=== PATIENT | male | born 1970 | race Caucasian/White ===

== ENCOUNTER 2016-09-26 18:23 | Inpatient (IN) | payer BC ==
[~2016-09-26] VITALS: Ht 177.8 cm; Wt 76.4 kg
--- NOTE | ~2016-09-26 | FD ---
ADMIT: 09/26/2016 RM/LOC: 427 [facility] MR#: [id number] [address] [address] LORRAINE HUDSON [address] [place] [address] Final Diagnosis SEX: M AGE: 46 : 1970 ADMISSION DATE: 09/26/2016 DISCHARGE DATE: 09/28/2016 FINAL DIAGNOSES: 1. Fever of unknown origin. 2. Malignant neoplasm of the pancreas. 3. Essential hypertension. 4. Diverticulosis. 5. Posttraumatic stress disorder. 6. Allergic rhinitis. 7. History of pulmonary embolism. Elena Mascorro MD/ modl JOB #: [id number] CC: Gino Hernández MD, Attending Physician Gino Hernández MD, Family Physician
--- NOTE | 2016-09-28 07:50 | HP ---
ADMIT: 09/26/2016 RM/LOC: 427 [facility] MR#: [id number] [address] [address] MAGDIEL HUDSON [address] [place] [address] History and Physical SEX: M AGE: 46 : 1970 DATE OF SERVICE: 09/27/2016 CHIEF COMPLAINT AND HISTORY OF PRESENT ILLNESS: Magdiel Hudson presented to the emergency room having not felt well for the day or two, but really poorly this evening, presented with some body aches and fever at home I believe to about 102 degrees. This is in the background of a patient who has just completed six cycles of chemotherapy for his localized pancreatic cancer, and for which he is hoping to have a Whipple procedure sometime in the near future. In the emergency room, septic evaluation was done, the source of infection was not identified. He had a white count of 12.7, lactic acid of 2.5. Blood cultures were collected. His chest x-ray was negative. His Procalcitonin was in an indeterminate range. His UA was not infected. He does not have any localizing symptoms which would support any real source of infection. It was felt he should be admitted however due to concerns he could have early sepsis. He was given a fluid bolus in the emergency room and started on IV vancomycin and Zosyn after I talked with medical staff there. PAST MEDICAL HISTORY: He was diagnosed with adenocarcinoma of the pancreas in May of 2016 and has subsequently undergone six chemotherapy cycles with FOLFIRINOX chemotherapy regimen. He is also to have a 5-day course of high- dose radiation therapy and then hopefully Whipple procedure. He said he did not really have any major symptomatic problems during his chemotherapy regimen. Chronic problems on his medical list include: 1. Allergic rhinitis. 2. Hypertension (not on medication). 3. New pancreatic cancer. 4. Migraines. 5. Diverticulitis. 6. PTSD. 7. Remote pulmonary embolus, no recurrence. PAST SURGICAL HISTORY: Operations include: 1. Upper and lower scopes. 2. Laparoscopy. 3. Various orthopedic procedures. 4. Sinus surgeries. 5. Tonsillectomy. 6. Sigmoid colectomy. FAMILY HISTORY: His mom is concurrently being followed for pancreatic cancer. HABITS: Does not use alcohol, although has in the past. He is now former smoker. 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 He is . ALLERGIES: SULFA DRUGS ARE LISTED. ADMIT: 09/26/2016 RM/LOC: 427 [facility] MR#: [id number] [address] [address] MAGDIEL HUDSON [address] [place] [address] History and Physical SEX: M AGE: 46 : 1970 MEDICATIONS: 1. Chemotherapy regimen as described. 2. Lexapro 20 mg daily. 3. Claritin 10 mg daily. 4. Oxycodone 5 mg as needed for pain management. 5. Trazodone 100 mg at bedtime. 6. Ativan 0.5 mg at bedtime. 7. Omeprazole 40 mg daily. 8. Had recently been on Xarelto 10 mg daily. REVIEW OF SYSTEMS: CONSTITUTIONAL: Fever as above. General malaise as above. ENT: No acute complaints. EYES: Nothing acute. RESPIRATORY: Minimal cough. No dyspnea. CV: No chest pain. GI: No nausea, vomiting, diarrhea, or stool changes. : No urinary complaints. SKIN: No rashes or bumps or blisters. NEUROPSYCH: This has all been stable. HEMATOLOGIC: No history of bleeding. Remote history of one episode of pulmonary embolus. Xarelto is on hold for potential stent procedure to be done ahead of radiation therapy, I believe this is for the common bile duct, that is actually scheduled for today. PHYSICAL EXAMINATION: GENERAL: This is an actually very well-appearing 46- year-old male, currently in no acute distress. Examined at the bedside early this morning. VITAL SIGNS: He was afebrile at that time. Other vital signs; pulse 84, respirations 16, BP 119/70, O2 saturation 95% on room air. ENT: Oral mucous membranes are clear. No nasal discharge. EYES: Normal in appearance. Pupils equal. Sclerae are clear. NECK: Supple. No tenderness with motion. No anterior-posterior cervical masses. No thyroid enlargement. CHEST: Unremarkable to inspection. LUNGS: Clear throughout. Normal respiratory effort. HEART: Regular rhythm without murmur or extra sound. ABDOMEN: Flat. Nontender to palpation of the upper and lower abdomen. Normal bowel sounds. No guarding. No rebound. No organomegaly. GENITALIA: Unremarkable to cursory exam. RECTAL: Lymph nodes are not felt in his axilla or groin. EXTREMITIES: Upper extremities are grossly normal, no rashes. Lower extremities are also grossly normal, no rashes. Normal pulses in his feet. No sores on his feet. BACK: Nontender to exam. ADMIT: 09/26/2016 RM/LOC: 427 [facility] MR#: [id number] [address] [place] [id number] MAGDIEL HUDSON [address] [place] [address] History and Physical SEX: M AGE: 46 : 1970 PSYCH: He is alert and calm. NEURO: No obvious focal neurologic signs. IMPRESSION: 1. Acute febrile illness of unknown origin in the patient who is about 2 weeks out from his last round of chemotherapy for a localized pancreatic carcinoma. 2. Adenocarcinoma of the pancreas. PLAN: We will continue broad-spectrum antibiotic coverage pending further cultures. Dr. Bruner, his oncologist, has also been asked to review the case. Sukhjinder Mantilla MD/ sridhar JOB #: [id number] CC: Gino Hernández, Attending Physician Gino Hernández, Family Physician
[2016-09-29] MEDS ORDERED: OXY IR DPS5 MG PO (13:36)
[2016-09-29] MEDS ORDERED: CLARITIN DPS10 MG PO (13:36)
[2016-09-29] MEDS ORDERED: LEXAPRO DPS20 MG PO (13:36)
[2016-09-29] MEDS ORDERED: DESYREL DPS100 MG PO (13:36)
[2016-09-29] MEDS ORDERED: OMEPRAZOLE40 MG PO (13:37)
[2016-09-29] MEDS ORDERED: ATIVAN-DPS0.5 MG PO (13:37)
[2016-09-29] MEDS ORDERED: BENADRYL-DPS25 MG PO (13:37)
[2016-09-29] MEDS ORDERED: MELATONIN1 MG PO (13:38)
[2016-09-29] MEDS ORDERED: XARELTO10 MG PO (13:38)
[2016-09-29] MEDS ORDERED: TYLENOL DPS325 MG PO (13:38)
[2016-09-29] MEDS ORDERED: AMOX TR-K CLV1 EAC4 PO (13:39)
--- NOTE | 2016-10-03 18:11 | ER ---
ADMIT: 09/26/2016 RM/LOC: 427 [facility] MR#: [id number] [address] [address] LORRAINE HUDSON [address] [place] [address] Emergency Room Report SEX: M AGE: 46 : 1970 DATE: 09/26/2016 ADDENDUM: HISTORY OF PRESENT ILLNESS: This patient comes to the ER because he has had a fever over the last 2 hours. He is currently getting chemotherapy for pancreatic cancer. He has body aching. Denies any cough, vomiting, or dysuria. PHYSICAL EXAMINATION: GENERAL: He is alert. LUNGS: Clear. VITAL SIGNS: His O2 saturation is normal. EMERGENCY ROOM COURSE: Septic workup was done. He has a white count of 12.7, his hemoglobin was 10.5, lactic acid was 2.5. He was started on Zosyn and vancomycin. I spoke with Dr. Mantilla, and he will be admitted by him. DIAGNOSES: 1. Fever. 2. Chemotherapy for pancreatic cancer. ANGEL Vega / Cal Harp MD / sridhar JOB #: [id number] CC: Gino Hernández MD, Attending Physician Gino Hernández MD, Family Physician
--- NOTE | 2016-10-18 08:15 | CO ---
ADMIT: 09/26/2016 RM/LOC: 427 [facility] MR#: [id number] [address] [address] LORRAINE HUDSON [address] [place] [address] Consultation SEX: M AGE: 46 : 1970 DATE OF CONSULTATION: 09/27/2016 ATTENDING PHYSICIAN: Gino Hernández MD CONSULTING PHYSICIAN: Kevin Bruner MD REASON FOR CONSULTATION: Pancreatic cancer, fever syndrome. HISTORY OF PRESENT ILLNESS: The patient is a 46-year-old male, who I follow up closely in the clinic for his borderline resectable pancreatic cancer. We have been treating him with FOLFIRINOX with 5-FU, irinotecan, and oxaliplatin. He recently has received six cycles thus far with fairly good tolerance. We just obtained restaging scans that showed his tumor to have apparently shrunk quite dramatically. He was now scheduled to be seen by Radiation/Oncology tomorrow in [place] for an abbreviated high-dose five-day course of radiation that we would give with concurrent Xeloda chemotherapy with the hope would then be that he can be resected thereafter. He presented last night with fever and chills, and was admitted through the emergency room. He has been placed on broad-spectrum antibiotic coverage. The source of his fever has not been clearly identified. He is feeling much better today with improvement in his temperatures. His white count is 12.7, hemoglobin is 10.9, platelets are 179. Thus far, his blood cultures and urine culture are negative. His chest x-ray showed no obvious pneumonia. His lactic acid was elevated at 2.5, bilirubin is normal at 0.3, procalcitonin was also normal. He was scheduled today to have his biliary stent changed, which he is a bit even overdo for changing in [place]. He is obviously going to miss that appointment. Otherwise, has no significant complaints. PAST MEDICAL HISTORY: Hypertension, pancreatic cancer, migraine headaches, remote history of pulmonary embolism, history of diverticulitis, history of alcohol abuse. ALLERGIES: REVIEWED IN THE CHART. MEDICATIONS: Reviewed in the chart. SOCIAL HISTORY: The patient is . He has four children. He has history of tobacco and alcohol abuse, but he is currently sober. FAMILY HISTORY: He is unaware of any recurrent pancreatic cancers or other malignancies in the family. REVIEW OF SYSTEMS: See HPI. Otherwise, complete review of systems was obtained and is negative. PHYSICAL EXAMINATION: VITAL SIGNS: Temperature 96, pulse 86, respirations 16, blood pressure 128/75. GENERAL: He is in no acute distress and provides a good history. He is alert and oriented. ADMIT: 09/26/2016 RM/LOC: 427 [facility] MR#: [id number] [address] [address] LORRAINE HUDSON [address] [place] [address] Consultation SEX: M AGE: 46 : 1970 HEENT: Mucous membranes are moist. No oral lesions are seen. Extraocular muscles were intact. Pupils are reactive and symmetrical. NECK: Without adenopathy or JVD. HEART: Regular rate and rhythm without murmur. LUNGS: Clear to auscultation bilaterally without any crackles or wheezes. ABDOMEN: Soft, nontender, and nondistended with positive bowel sounds throughout. No organomegaly is appreciated. EXTREMITIES: No edema, rashes, lesions or adenopathy is felt. LABORATORY DATA: Please see HPI. IMPRESSION: 1. Febrile illness of unknown cause, improved his antibiotic coverage. Certainly of concern, this is indwelling biliary stent, but he has no other findings to suggest a cholangitis. 2. Pancreatic cancer. Currently, undergoing treatment. RECOMMENDATIONS: I talked to the patient at length and reviewed his chart extensively. He has been feeling better since being admitted with antibiotic coverage. I think it is important that we try to keep his appointment for his radiation tomorrow, so hopefully, he can be discharged in the next 24 hours if he remains afebrile. His blood counts were adequate to help fight his own infection. I will have close followup with him in clinic as well upon discharge for his ongoing cancer care. I also would like him to get his biliary stent exchanged in the near future, which we will help to arrange as well. I will follow him during this admission, and appreciate being involved in his care. Kevin Bruner MD/ sridhar JOB #: [id number] CC: Gino Hernández MD, Attending Physician Gino Hernández MD, Family Physician
[2017-01-25] MEDS ORDERED: PROTONIX40 MG PO (19:03)
[2017-01-25] MEDS ORDERED: DURAGESIC1 EAC1 TD (19:03)
[2017-01-25] MEDS ORDERED: COMPAZINE10 MG PO (19:04)
[2017-01-25] MEDS ORDERED: CALCIUM + VITA1 EACH PO (19:04)
[2017-01-25] MEDS ORDERED: IMITREX DP6 MG/0.5 M SQ (19:05)
[2017-01-25] MEDS ORDERED: ZOMIG5 MG PO (19:05)
[2017-01-25] MEDS ORDERED: COLACE-DPS100 MG PO (19:05)
[2017-01-25] MEDS ORDERED: MUCINEX D PO (19:06)
[2017-01-25] MEDS ORDERED: CARAFATE DPS1 GM PO (19:06)
[2017-01-25] MEDS ORDERED: MARINOL2.5 MG PO (19:06)
[2017-01-25] MEDS ORDERED: ZYRTEC DPS10 MG PO (19:06)
[2017-01-25] MEDS ORDERED: SENOKOT-S TABL1 EACH PO (19:07)
[2017-01-25] MEDS ORDERED: REGLAN-DPS10 MG PO (19:07)
[2017-01-25] MEDS ORDERED: MAALOX DPS30 ML PO (19:07)
[2017-01-25] MEDS ORDERED: POLYETHYLENE GL17 GM PO (19:07)
[2017-01-25] MEDS ORDERED: ZOFRAN DPS8 MG PO (19:08)
== END 2016-09-28 10:30 | disposition home or self-care (01) | DRG 864 ==
LOC: ER 18:23 → 4PCU 20:20
PROVIDERS: ADMIT Family Medicine
DX: R50.9 Fever, unspecified (principal); C25.9 Malignant neoplasm of pancreas, unspecified; I10 Essential (primary) hypertension; K57.90 Diverticulosis of intestine, part unspecified, without perforation or abscess without bleeding; F43.10 Post-traumatic stress disorder, unspecified; J30.9 Allergic rhinitis, unspecified; Z86.711 Personal history of pulmonary embolism; Z87.891 Personal history of nicotine dependence

== ENCOUNTER 2017-01-19 19:52 | Inpatient (IN) | payer BC ==
[~2017-01-19] VITALS: Ht 176.5 cm; Wt 72.2 kg
--- NOTE | ~2017-01-19 | CO ---
ADMIT: 01/19/2017 RM/LOC: 407 [facility] MR#: [id number] [address] [address] MAGDIEL HUDSON [address] [place] [address] Consultation Report SEX: M AGE: 46 : 1970 DATE OF CONSULTATION: 01/22/2017 ATTENDING PHYSICIAN: Gino Hernández CONSULTING PHYSICIAN: Nimesh Peguero MD ADDENDUM: Magdiel was seen in consultation following Julio Briceno for consideration of EGD. I have reviewed the chart, reviewed Julio Briceno's note and I am in agreement with his documentation. I discussed esophagogastroduodenoscopy with Magdiel and he has agreed to proceed. We will have further recommendations pending with findings and endoscopy, that will be performed by either Dr. Terry or Dr. Valentin as an add-on into the schedule tomorrow. Nimesh Peguero MD/ modl JOB #: [id number] CC: Gino Hernández, Attending Physician Gino Hernández, Family Physician
--- NOTE | ~2017-01-19 | OR ---
ADMIT: 01/19/2017 RM/LOC: 407 [facility] MR#: [id number] [address] [address] LORRAINE HUDSON Bishnu [address] [place] [id number] Operative/Delivery Room Report SEX: M AGE: 46 : 1970 SURGERY DATE: 01/23/2017 SURGEON: Gino Valentin MD PREOPERATIVE DIAGNOSES: 1. History of metastatic pancreatic cancer. 2. Nausea. 3. Vomiting. POSTOPERATIVE DIAGNOSES: 1. Significant distal gastritis and maybe even some mild narrowing of the pylorus. No obvious mass seen. 2. History of metastatic pancreatic cancer. 3. Nausea. 4. Vomiting. Final pathology pending on biopsies. PROCEDURE: EGD with biopsies of the distal esophagus. ANESTHESIA: MAC anesthesia. ESTIMATED BLOOD LOSS: Less than 5 mL. INDICATION FOR PROCEDURE: Please see H and P. DESCRIPTION OF PROCEDURE: After the risks, benefits, possible complications, and the alternatives had been explained, and informed consent had been obtained, the patient was taken back to the procedure room, underwent sedation. Flexible EGD scope was introduced. Down through the esophagus, and you can see there was definitely some reflux esophagitis there in the distal esophagus. Maneuvered through here. Fair amount of bile in the stomach was cleaned out. The majority of the stomach looked normal until you get toward the antrum and pyloric area. There was definitely some fairly significant gastritis, maybe some mild narrowing, it appears extrinsic. No actual ulcer ADMIT: 01/19/2017 RM/LOC: 407 [facility] MR#: [id number] [address] [address] LORRAINE HUDSON [address] [place] [address] Operative/Delivery Room Report SEX: M AGE: 46 : 1970 around the pylorus. I was able to get my scope through there and it then appeared to be more open. I made it down the second portion. You can see where the stent in the ampulla is from his recent biliary stenting. So no other masses or lesions throughout that portion of the duodenum. Came back up and like I said, I made sure my scope went across the pylorus easily 3 or 4 times. I did not actually use a balloon dilator there but felt it was otherwise pretty normal at this point. I did do biopsies of the distal antrum, but definitely some bad gastritis. The scope was removed. I inspected the remainder of the stomach on the way out and the procedure was terminated. Tolerated it well, was taken to recovery room in stable and satisfactory condition. Gino Valentin MD/ sridhar JOB #: [id number] CC: Gino Hernández, Attending Physician Gino Hernández, Family Physician
[~2017-01-19 19:52] MED LIST: AMOX TR-K CLV1 EAC4 PO; ATIVAN-DPS0.5 MG PO; BENADRYL-DPS25 MG PO; CLARITIN DPS10 MG PO; DESYREL DPS100 MG PO; LEXAPRO DPS20 MG PO; MELATONIN1 MG PO; OMEPRAZOLE40 MG PO; OXY IR DPS5 MG PO; TYLENOL DPS325 MG PO; XARELTO10 MG PO
--- NOTE | 2017-01-20 01:59 | ER ---
ADMIT: 01/19/2017 RM/LOC: 407 [facility] MR#: [id number] [address] [address] LORRAINE HUDSON [address] [place] [address] Emergency Room Report SEX: M AGE: 46 : 1970 DATE: 01/19/2017 CHIEF COMPLAINT: Vomiting. HISTORY OF PRESENT ILLNESS: The patient is a 46-year-old male with stage IV pancreatic carcinoma status post biliary stent on January 16 followed by chemotherapy, had a good day yesterday hunting. Protracted nausea and vomiting today associated with increased bile duct discharge. Denies any fevers, chills, productive cough, or diarrhea. PAST MEDICAL HISTORY: ILLNESSES: Stage IV pancreatic carcinoma, migraine headaches, PTSD, seasonal allergic rhinitis, and recent pulmonary emboli. OPERATIONS: ERCP with biliary stent on January 16, cholecystectomy, partial colectomy for diverticulitis and abscess, T and A, left rotator cuff repair, right ACL reconstruction multiple times, multiple sinus surgeries, and venous access device, left anterior chest wall. ALLERGIES: SULFA. MEDICATIONS: Please see nurse's MAR. SOCIAL HISTORY: , nonsmoker, nondrinker. No illicit drugs. FAMILY HISTORY: Negative per chart review. REVIEW OF SYSTEMS: A 12-point review of systems negative for all other systems, illnesses, or operations except as outlined above. PHYSICAL EXAMINATION: VITAL SIGNS: Temp 97.4, pulse 70, respirations 16, BP 122/89, and SaO2 of 99% on room air. GENERAL: Toxic appearing without jaundice or icterus. HEENT: Normocephalic. No evidence of epistaxis, rhinorrhea, or otorrhea. NECK: Supple without lymphadenopathy or thyromegaly. CHEST: Breath sounds equal without rales, rhonchi, or wheeze. HEART: Regular rate and rhythm without murmur, gallop, or edema. ABDOMEN: Soft, tender, nondistended. Bowel sounds hypoactive. Discharge noted per bile duct bag. BACK: No CVA tenderness. EXTREMITIES: No evidence of Homans sign, synovitis, or dermatitis. NEURO: EOMI, PERRLA. No evidence of drift, dysarthria, or ataxia. Gait not assessed due to weakness. MEDICAL DECISION MAKING: The patient given liter of bolus, Zofran 8 mg IV push, Reglan 5 mg IV push, and fentanyl 50 mcg IV push q.15 minutes p.r.n. Chest x-ray negative. WBC 11.6 and hemoglobin 13.4. Normal chemistries except alkaline phosphatase 412. AST 108, ALT 132, lactic 3.5, normal bilirubin, and procalcitonin 0.13. UA pending. EKG showed sinus rhythm without ST-T or Q-wave change. Chest x-ray, no acute findings. Discussed ADMIT: 01/19/2017 RM/LOC: 407 [facility] MR#: [id number] [address] [place] [id number] LORRAINE HUDSON [address] [place] [address] Emergency Room Report SEX: M AGE: 46 : [address] Pak and Gita. Dr. Pelayo gave orders to nursing staff. DIAGNOSES: 1. Stage IV pancreatic carcinoma. 2. Recent biliary stent followed by chemotherapy. RECOMMENDATION: Admit inpatient telemetry for Dr. Hernández. ADMISSION AND DISCHARGE CONDITION: Grave. The patient is full code at this time. Demar Nunes MD/ sridhar JOB #: [id number] CC: Gino Hernández MD, Attending Physician Gino Hernández MD, Family Physician MD Kevin Simon MD
--- NOTE | 2017-01-23 08:39 | CO ---
ADMIT: 01/19/2017 RM/LOC: 407 [facility] MR#: [id number] [address] [address] LORRIANE HUDSON [address] [place] [address] Consultation SEX: M AGE: 46 : 1970 DATE OF CONSULTATION: 01/22/2017 ATTENDING PHYSICIAN: Gino Hernández CONSULTING PHYSICIAN: Fidelina Sahu APRN REASON FOR CONSULTATION: For review of goals and expectations of healthcare as well as symptom management. TIME IN: 0900 hours. TIME OUT: 0915 hours. HISTORY OF PRESENT ILLNESS: This is a very pleasant 46-year-old male with history of stage 4 pancreatic cancer with mets to the gallbladder status post gallbladder removal. He presented to the ER with a 24-hour history of nausea, vomiting, and abdominal pain. The patient states he was to attend his custodial green party, but was unable to go because of the symptoms. He has been undergoing multiple chemotherapy treatments and has had multiple biliary stents placed. Most recently, he had ERCP and a metal stent placed on 01/16/2017. His nausea and vomiting began on 01/18/2017. Following the stent placement and the ERCP, he was feeling well, but he does have a history of stents clogging, causing problems. He does state that he was feeling more weak and shaky starting on the 18 of January but denies any fevers. He was brought in by some friends who are also paramedics. They gave him some IV fluids and brought him into the ER. Also of note, the patient recently started on chemotherapy that he has not been on in a while. He also states that he has not had a bowel movement since 01/16/2017, which he requires regular Fleet Enemas to have bowel movements. Symptomatically, the patient is currently denying any shortness of breath, chest pain, or palpitations. He denies fevers or chills. He does complain of some abdominal pain. Also is currently having nausea and vomiting during conversation. He denies any diarrhea or blood in the stools. 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 Also of note, the abdominal CT shows ascites. Surgery has been consulted this morning for a possible EGD and also ordered is the NG to LIS if the patient wishes. Due to the complexity of this patient, Supportive Care consultation was requested for discussions of goals of care and expectations of health care. ADVANCE DIRECTIVE AND CODE STATUS: Currently, the patient is listed as a full code. He does have a living will and healthcare-power of criminal attorney paper work delineating that Shakeel Hudson is his healthcare power of criminal attorney. His phone #[phone]. PAST MEDICAL HISTORY: Significant for pancreatic cancer stage 5, hypertension, allergic rhinitis, migraines, diverticulitis, pulmonary embolism, and PTSD. ADMIT: 01/19/2017 RM/LOC: [address] [facility] MR#: [id number] [address] [place] [id number] LORRAINE HUDSON [address] [place] [address] Consultation SEX: M AGE: 46 : 1970 PAST SURGICAL HISTORY: Tonsillectomy, colectomy, gallbladder removal, multiple ortho procedures, sinus surgery. FAMILY HISTORY: Mother also had pancreatic cancer. He states that she was diagnosed 4 years ago and is currently living. SOCIAL HISTORY: The patient is living alone at home alone. He is . 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 He is a former smoker. He denies alcohol or drug use. ALLERGIES: SULFA. MEDICATIONS: Please refer to the chart for accurate dosages and routes. Current medications include: 1. Duragesic 25 mcg. 2. Carafate. 3. Ativan. 4. Phenergan. 5. Protonix. 6. Desyrel. 7. Reglan. 8. OxyIR. 9. Vitamin D. 10.Calcium. 11.Xarelto. 12.Lexapro. 13.MiraLax. 14.Colace. 15.Zomig. 16.Imitrex. 17.Motrin. 18.Ativan. 19.Compazine. 20.Claritin. 21.Mucinex. 22.Heparin flush. 23.Maalox. 24.Tylenol. 25.Nitrostat. 26.Sublimaze. 27.Zofran. FUNCTIONAL STATUS: Previously, the patient was living at home. His mobility was full. He had normal activities with some evidence of disease. He was fully caring for himself. His intake was reduced due to the nausea and vomiting. His LOC is full. Previous palliative performance scale is about 90%. Currently, the patient's mobility continues to be full. He is able to ADMIT: 01/19/2017 RM/LOC: [address] [facility] MR#: [id number] [facility] [address] [address] LORRAINE HUDSON [address] [place] [address] Consultation SEX: M AGE: 46 : 1970 have normal activity with some effort and some evidence of disease. He is requiring occasional assistance. His intake is extremely reduced, almost 2 sips. LOC is full. His current palliative performance scale is about 70%. REVIEW OF SYSTEMS: All review of systems were reviewed and negative except what was noted in the HPI. PHYSICAL EXAM: GENERAL: The patient is alert and oriented. He is in no acute distress. However, he is having bouts of nausea and vomiting during exam. He is pleasant and very talkative. He is lying in bed during conversation. VITAL SIGNS: Temperature 97.9, pulse 58, respirations 16, blood pressure 128/79, and O2 saturations 91% on room air. HEENT: Head is normocephalic and atraumatic. Mucous membranes are moist with fair dentition. Pupils are equal and reactive bilaterally. NECK: Supple. RESPIRATORY: Lung sounds are clear to diminished at times with nonlabored breathing. CARDIOVASCULAR: Regular rate and rhythm. No rubs, clicks, or murmurs were heard during exam. GASTROINTESTINAL: Abdomen is soft and flat. Bowel sounds are hypoactive. His last bowel movement was 01/16/2017. He does have some tenderness in his right upper quadrant. EXTREMITIES: No clubbing or cyanosis of his extremities. No signs of edema. Pedal and radial pulses are normal. INTEGUMENTARY: Skin appears intact. It is warm and dry. NEUROLOGIC: Alert and oriented x3. No focal deficits. PSYCH: Calm and cooperative. DIAGNOSTICS: Sodium 142, potassium 3.3, chloride 109, CO2 of 26, BUN is 6, creatinine is 0.7, glucose is 100. WBC 4.4, hemoglobin 11.7, hematocrit 35.7, and platelets 124. His lactic acid on admission was 3.5, his albumin on admission was 2.6, alkaline phosphatase 273, AST 78. He did have a CT of his abdomen and pelvis that showed the stent in good position, persistent thickening of the wall of the stomach, and gastric lymphoma must be excluded. Ascites was also noted on the CT. IMPRESSION: 1. Debility. 2. Fatigue. 3. Nausea. 4. Palliative care. 5. Vomiting. 6. Stage 4 pancreatic cancer. 7. Elevated LFTs, chronic. 8. Full code. 9. Constipation. 10.Chronic pain. ADMIT: 01/19/2017 RM/LOC: [address] [facility] MR#: [id number] [address] [address] LORRAINE HUDSON [address] [place] [address] Consultation SEX: M AGE: 46 : 1970 11.Moderate protein calorie malnutrition with an albumin of 2.6. PLAN: I was able to meet at the bedside with the patient to discuss goals of care, introduce my role as palliative care and supportive care and discuss symptom management with the patient. The patient is very appreciative of the visit. I did discuss with them his goals of care and at this point, he would like to continue to try to control his vomiting so he can continue chemo. He is very hopeful that he will be able to have a good quality of life once his vomiting is controlled. He does state that his vomiting is better than it has been but is still not optimal. I also discussed with him his advanced care planning. The patient states that he is a full code and he is firm in this wish at this time. He has appointed his son Shakeel as his healthcare power of criminal attorney, his phone #[phone]. The copies of this are on the chart. Symptomatically the patient is continuing to have constipation with no bowel movement since the [address] shows no bowel obstruction. I have ordered some medications to help with this at this time. I ordered Senokot-S b.i.d. and Dulcolax suppository. Currently his pain is well controlled. He does state that he had a fentanyl patch on but he did remove it and he is receiving fentanyl IV push and states that his pain is well controlled. I will continue to follow along in this very kind patient's case. The patient was seen in collaboration with Dr. Coffman who agrees with above assessment, discussion, and plan. I would like to thank Dr. Pelayo and Dr. Hernández for the invitation to participate in this patient's care. Total consultation time was 15 minutes from 0900 hours to 0915 hours with [id number] time of 0905 hours to 0913 hours. Greater than 50% of this time was spent at bedside counseling and educating the patient and family concerning goals and options of care. Fidelina Sahu APRN/ sridhar JOB #: [id number] CC: Gino Hernández, Attending Physician Gino Hernández, Family Physician
--- NOTE | 2017-01-24 07:39 | HP ---
ADMIT: 01/19/2017 RM/LOC: 407 [facility] MR#: [id number] [address] [address] GUMARO HUDSONDOMENICO Goetz [address] [place] [address] History and Physical SEX: M AGE: 46 : 1970 DATE OF SERVICE: CHIEF COMPLAINT: Nausea and vomiting. HISTORY OF PRESENT ILLNESS: The patient is a very pleasant 46-year-old male with stage IV pancreatic cancer with mets to the gallbladder, status post gallbladder removal, who presents to the ER with 24-hour history of nausea, vomiting, and abdominal pain. The patient has been undergoing multiple chemotherapy and has also had multiple biliary stents placed and most recently had a metal stent placed with ERCP on 01/16/2017. Overall, he had been feeling well after that; however, he does mention that he has had a history of his stents clogging in the past and causing problems. Yesterday he started having some nausea, vomiting, and abdominal pain. He started feeling more weak and shaky, but he had not noticed any fevers. The patient was supposed to be at a democrat yesterday for his [facility] democrat from the [employer] and he did not show up, so friends went out and found him sick. They gave him some IV fluids and medicine for his nausea, that did not improve his symptoms, so the patient was brought into the ER. The patient mentions that he was recently restarted on some chemotherapy that he had not had in a while. He is unsure if maybe these symptoms are related to that, but he is concerned about his stent being clogged again. He also mentions he has not had a bowel movement since 01/16/2017, which required Fleet enemas to actually have a bowel movement. Again, he denies any fever or chills. Denies chest pain, shortness of breath, or palpitations. Positive for abdominal pain. He says it is usually in the right upper quadrant to middle pain. He has constipation. He has nausea. He has vomiting. Has not had diarrhea. No blood in the stools. He does not have any upper respiratory symptoms like sore throat, sinus congestion, sinus pressure, or earache. He has not had a cough or wheezing. He has not had any numbness or tingling, seizure, or stroke-like activity. He denies any urinary symptoms like hematuria, dysuria, or increased frequency. PAST MEDICAL HISTORY: Significant for pancreatic cancer stage IV, hypertension that he does not require medications for, allergic rhinitis, migraines, diverticulitis, has a history of pulmonary embolism as well as PTSD. PAST SURGICAL HISTORY: Significant for tonsil, sigmoid colectomy, and gallbladder removal. He has had multiple ortho procedures and also sinus surgery. FAMILY HISTORY: Of note, mother also has pancreatic cancer currently. SOCIAL HISTORY: He is a former smoker. Does not use alcohol and does not use drugs. 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 . ALLERGIES: INCLUDE SULFA. MEDICATIONS: The patient is on a multitude of medications, specifically multiple chemotherapies not listed here in his medication list. ADMIT: 01/19/2017 RM/LOC: [address] [facility] MR#: [id number] [facility] [address] [address] LORRAINE HUDSON [address] [place] [address] History and Physical SEX: M AGE: 46 : 1970 1. Oxycodone. 2. Fentanyl patches. 3. Omeprazole. 4. Lexapro. 5. Xarelto. 6. Prochlorperazine. 7. Calcium. 8. Trazodone. 9. Lorazepam. 10.Sumatriptan. 11.Zomig. 12.Docusate. 13.Ibuprofen. 14.Mucinex. 15.He is also on a multitude of allergy medications. 16.He is on Zyrtec, Claritin, and Sandra, however, not at the same time. He takes these as needed and he varies them. REVIEW OF SYSTEMS: See HPI. Otherwise 10-point review is negative. PHYSICAL EXAMINATION: VITAL SIGNS: At the time of exam, temperature is 97.2 degrees Fahrenheit, 52 for heart rate, 16 for respirators, blood pressure is 140/75, and he is saturating 97% on room air. GENERAL: No acute distress. Alert and oriented x3. He is pleasant, very talkative. HEENT: Normocephalic and atraumatic. Moist mucous membranes. Extraocular muscles are intact. NECK: Supple. HEART: Regular rate and rhythm. No murmur. LUNGS: Clear to auscultation bilaterally. He has normal effort. ABDOMEN: Soft. He has mild decreased bowel sounds, but no masses are appreciated. He is very tender in his epigastric and periumbilical area as well as right upper quadrant. EXTREMITIES: Show no signs of edema. He has normal pulses. LABORATORY DATA: Lab work done by the ER, blood cultures are pending. INR was 1.02. White blood cell count of 11.3, hemoglobin 13.4, and platelets are 196. Sodium is 139, potassium 3.6, chloride 104, CO2 of 24, BUN of 14, creatinine 1.1. Glucose is 115, calcium corrected was 9.1, phosphorus was 3.5, total bilirubin was 1, albumin 3.3, alkaline phosphatase is 402 which is elevated. AST is elevated at 108. ALT was elevated at 132. Magnesium was 2.1. CK, MB, and troponin are all within normal limits. Lactic acid initially was 3.5, the patient was given IV fluids. On recheck, it is now 0.9. Procal is 0.13. Chest x-ray was normal. ASSESSMENT: 1. Stage IV pancreatic cancer with metastasis to the gallbladder. Has a poor prognosis. ADMIT: 01/19/2017 RM/LOC: 407 [facility] MR#: [id number] [address] [place] [address] LORRAINE HUDSON [address] [place] [address] History and Physical SEX: M AGE: 46 : 1970 2. Vomiting, bilious. 3. Elevated liver function tests, likely chronic. 4. Allergies. PLAN: At this time, we will treat the patient conservatively for his nausea, vomiting, and pain. We will give him IV fluids to help rehydrate him. I am concerned for possible stent blockage; however, I hope so that this is not the case since the stent was just placed 3 days ago. Other things to think about is restarting chemotherapy. Also consider constipation due to the patient having irregular bowel movements for quite some time. We will get an abdominal x-ray in the morning to assess to see if his bowel looks full of stool. We will continue to fluid resuscitate him. We will let Oncology know that he is in the hospital, we appreciate their advise on his chemotherapy. If no clear cause for his nausea or vomiting develops in the next few days, we will need to consider possible discussions on doing another ERCP to take a look at the stent placement or other imaging that could be done. Juana Pelayo MD Resident / Devante Pak MD / sridhar JOB #: [id number] CC: Gino Hernández, Attending Physician Gino Hernández, Family Physician
[2017-01-25] MEDS ORDERED: DURAGESIC1 EAC1 TD (19:03)
[2017-01-25] MEDS ORDERED: PROTONIX40 MG PO (19:03)
[2017-01-25] MEDS ORDERED: CALCIUM + VITA1 EACH PO (19:04)
[2017-01-25] MEDS ORDERED: COMPAZINE10 MG PO (19:04)
[2017-01-25] MEDS ORDERED: ZOMIG5 MG PO (19:05)
[2017-01-25] MEDS ORDERED: IMITREX DP6 MG/0.5 M SQ (19:05)
[2017-01-25] MEDS ORDERED: COLACE-DPS100 MG PO (19:05)
[2017-01-25] MEDS ORDERED: MUCINEX D PO (19:06)
[2017-01-25] MEDS ORDERED: CARAFATE DPS1 GM PO (19:06)
[2017-01-25] MEDS ORDERED: ZYRTEC DPS10 MG PO (19:06)
[2017-01-25] MEDS ORDERED: MARINOL2.5 MG PO (19:06)
[2017-01-25] MEDS ORDERED: SENOKOT-S TABL1 EACH PO (19:07)
[2017-01-25] MEDS ORDERED: POLYETHYLENE GL17 GM PO (19:07)
[2017-01-25] MEDS ORDERED: MAALOX DPS30 ML PO (19:07)
[2017-01-25] MEDS ORDERED: REGLAN-DPS10 MG PO (19:07)
[2017-01-25] MEDS ORDERED: ZOFRAN DPS8 MG PO (19:08)
--- NOTE | 2017-01-29 11:36 | CO ---
ADMIT: 01/19/2017 RM/LOC: 407 [facility] MR#: [id number] [address] [address] MAGDIEL HUDSON [address] [place] [address] Consultation SEX: M AGE: 46 : 1970 DATE OF CONSULTATION: 01/22/2017 ATTENDING PHYSICIAN: Gino Hernández CONSULTING PHYSICIAN: Nimesh Peguero MD REASON FOR CONSULTATION: Gastric thickening found upon CT. HISTORY OF PRESENT ILLNESS: Magdiel is a very pleasant, but unfortunate 46-year- old male, diagnosed with metastatic stage IV pancreatic cancer, who presents to the hospital with a four-day duration of nausea and vomiting. He also has noticed some abdominal pain located in the epigastric and right upper quadrant regions. His nausea and vomiting have been on and off, but denies any hematemesis. He has also noticed some fevers and chills on and off for the last several months. He was diagnosed with pancreatic cancer in June of this year. The patient further denies any bowel changes. PAST MEDICAL HISTORY: Significant for: 1. Migraines. 2. Diverticulosis. 3. Prior pulmonary embolism. PAST SURGICAL HISTORY: 1. He has had three ERCPs with the last one being approximately 3 days ago where at that time, they put in a permanent biliary stent. 2. Cholecystectomy. 3. Rotator cuff surgery. 4. TKA. ALLERGIES: SULFA. MEDICATIONS: Well documented in chart. FAMILY HISTORY: Noncontributory. SOCIAL HISTORY: The patient is a former alcohol and tobacco user. He quit tobacco approximately a year and five months ago and alcohol approximately 2 years ago. He does use marijuana occasionally. REVIEW OF SYSTEMS: HEAD: The patient denies any dizziness, lightheadedness, current migraines, or headaches. The rest of comprehensive 10-point review of systems was performed and all other systems are negative. PHYSICAL EXAMINATION: GENERAL: The patient is in no acute distress. He is alert and oriented. HEENT: Head is normocephalic and atraumatic. EOMS are intact. Conjunctivae are free of icterus, erythema, or pallor. Pinnae, free of deformities. Nose, midline. No tracheal deviation. NECK: Supple. ADMIT: 01/19/2017 RM/LOC: 407 [facility] MR#: [id number] [address] [address] MAGDIEL HUDSON E [address] [place] [address] Consultation SEX: M AGE: 46 : 1970 SKIN: Negative for jaundice, clubbing, edema, pallor, or cyanosis. LUNGS: Normal respiratory effort. Heart distal pulses intact. Regular rate and rhythm. ABDOMEN: Soft, nondistended, tender in right upper quadrant. NEURO: Grossly intact. DIAGNOSTIC IMAGING: CT of abdomen and pelvis revealed persistent thickening of the gastric wall. ASSESSMENT: 1. Gastric wall thickening. 2. Stage IV metastatic pancreatic cancer. PLAN: Plan is to have the patient undergo EGD tomorrow, will be performed by Dr. Peguero or one of the other providers. I discussed the risks, alternatives, benefits, and complications of endoscopy with the patient, to which he is in agreement of this plan. I had all his questions answered and would like to proceed. He is already on the schedule, so we will get consent for the case and get him n.p.o. at midnight. I have also prescribed Marinol to help with his nausea. ANGEL Douglas / Nimesh Peguero MD / sridhar JOB #: [id number] CC: Gino L Husen, Attending Physician Gino Hernández, Family Physician
== END 2017-01-24 13:50 | disposition home or self-care (01) | DRG 375 ==
LOC: ER 19:52 → 4PCU 21:30
PROVIDERS: ADMIT Family Medicine
PROC: 0DB38ZX Excision of Lower Esophagus, Via Natural or Artificial Opening Endoscopic, Diagnostic (ICD-10-PCS; principal; 2017-01-23)
DX: C78.4 Secondary malignant neoplasm of small intestine (principal); C25.9 Malignant neoplasm of pancreas, unspecified; C78.6 Secondary malignant neoplasm of retroperitoneum and peritoneum; R18.8 Other ascites; E44.0 Moderate protein-calorie malnutrition; K29.60 Other gastritis without bleeding; E87.6 Hypokalemia; I10 Essential (primary) hypertension; C78.89 Secondary malignant neoplasm of other digestive organs; G43.909 Migraine, unspecified, not intractable, without status migrainosus; F43.10 Post-traumatic stress disorder, unspecified; K57.90 Diverticulosis of intestine, part unspecified, without perforation or abscess without bleeding; J30.9 Allergic rhinitis, unspecified; Z86.711 Personal history of pulmonary embolism; Z87.891 Personal history of nicotine dependence; Z96.659 Presence of unspecified artificial knee joint